=== PATIENT | male | born 1950 | race Caucasian/White ===

== ENCOUNTER → 2019-05-16 | Outpatient (CLI) | payer MEDICARE, OTHER ==
[~2019-05-16] MED LIST: ALLERCLEAR D-21 EACH PO; ASPIRIN81 MG PO; LISINOPRIL40 MG PO; NORCO 5-325 TA1 EACH PO; OMNARIS; VYTORIN 10-201 EACH PO
== END ==
LOC: M.LAB 05:17
DX: E87.6 Hypokalemia (principal)

== ENCOUNTER → 2020-05-06 | Outpatient (CLI) | payer MEDICARE, OTHER ==
--- NOTE | 2020-05-06 14:32 | 2DMMODE ---
[place] [address] 2 D/M-MODE ECHOCARDIOGRAM Name: RAFAEL STODDARD JR Room: [facility]#: [id number] Admission: 05/06/20 Attend Phys: Brad Menezes Discharge: Date of : 52 Date of Service: 05/06/20 1431 Report #: [id number] THIS REPORT FOR: cc: Brad Menezes,Js Cannon MD [facility] ~ APPROVED REPORT Study performed: 05/06/2020 10:58:15 EXAM: Comprehensive 2D, Doppler, and color-flow Echocardiogram Patient Location: Out-Patient BSA: 2.26 HR: 68 bpm BP: 120/70 mmHg Other Information Study Quality: Fair Indications Murmur 2D Dimensions IVSd: 12.48 (7-11mm) LVOT Diam: 21.01 (18-24mm) LVDd: 51.12 mm PWd: 11.14 (7-11mm) Ascending Ao: 37.50 (22-36mm) LVDs: 33.12 (25-40mm) Aortic Root: 29.52 mm Volumes Left Atrial Volume (Systole) LA ESV Index: 18.80 mL/m2 Aortic Valve AoV Peak Duc.: 1.53 m/s AO Peak Gr.: 9.41 mmHg LVOT Max P.32 mmHg AO Mean Gr.: 5.14 mmHg LVOT Mean P.98 mmHg LVOT Max V: 1.44 m/s AO V2 VTI: 29.67 cm LVOT Mean V: 0.91 m/s JOHNATHON (VTI): 3.42 cm2 LVOT V1 VTI: 29.25 cm Mitral Valve E/A Ratio: 0.98 [place] [address] 2 D/M-MODE ECHOCARDIOGRAM Name: RAFAEL STODDARD JR [id number] Admission: 05/06/20 Attend Phys: Brad Menezes Discharge: Date of : 52 Date of Service: 05/06/20 1431 Report #: [id number] MV Decel. Time: 157.47 ms MV E Max Duc.: 0.69 m/s MV PHT: 45.67 ms MVA (PHT): 4.82 cm2 TDI E/Lateral E': 6.27 E/Medial E': 7.67 Medial E' Duc.: 0.09 m/s Lateral E' Duc.: 0.11 m/s Pulmonary Valve PV Peak Duc.: 1.09 m/s PV Peak Gr.: 4.73 mmHg Tricuspid Valve RAP Estimate: 5.00 mmHg TR Peak Gr.: 17.27 mmHg RVSP: 22.27 mmHg PA Pressure: 22.27 mmHg Left Ventricle The left ventricle is normal size. There is normal LV segmental wall motion. There is normal left ventricular wall thickness. Left ventricular systolic function is normal. LVEF is 55-60%. Grade I - abnormal relaxation pattern. Right Ventricle The right ventricle is normal size. The right ventricular systolic function is normal. Atria The left atrium size is normal. The right atrium size is normal. Aortic Valve Aortic valve is mildly calcified. No aortic regurgitation is present. There is no aortic valvular stenosis. Mitral Valve The mitral valve is normal in structure. There is no mitral valve regurgitation noted. No evidence of mitral valve stenosis. Tricuspid Valve The tricuspid valve is normal in structure. Mild tricuspid regurgitation. No pulmonary hypertension. Pulmonic Valve The pulmonary valve is normal in structure. [place] [address] 2 D/M-MODE ECHOCARDIOGRAM Name: RAFAEL STODDARD JR Room: [facility]#: [id number] Admission: 05/06/20 Attend Phys: Brad Menezes Discharge: Date of : 52 Date of Service: 05/06/20 1431 Report #: [id number] valvular regurgitation. Great Vessels The aortic root is normal in size. IVC is normal in size and collapses >50% with inspiration. Pericardium There is no pericardial effusion. <Conclusion> The left ventricle is normal size. There is normal left ventricular wall thickness. Left ventricular systolic function is normal. LVEF is 55-60%. Grade I - abnormal relaxation pattern. There is normal LV segmental wall motion. Mild tricuspid regurgitation. No pulmonary hypertension. IVC is normal in size and collapses >50% with inspiration. <ELECTRONICALLY SIGNED> By: Js Zhao MD, FACC 05/06/20 1431 1431 1431 Js Zhao MD, FACC /INF
== END ==
LOC: M.CRD 10:54
PROVIDERS: ATTEND Family Medicine
DX: I07.1 Rheumatic tricuspid insufficiency (principal); R01.1 Cardiac murmur, unspecified; Z00.00 Encounter for general adult medical examination without abnormal findings